=== PATIENT | male | born 1960 | race Caucasian/White ===

== ENCOUNTER 2018-05-06 17:45 | Emergency (ER) | payer MEDICAID, OTHER ==
[~2018-05-06] VITALS: Ht 172.7 cm; Wt 72.6 kg
--- NOTE | 2018-05-06 17:50 | NUR ---
Pt was not found in ER waiting room.
[2018-05-06] MEDS ORDERED: MORPHINE SULFATE 4 MG/1 ML DISP.SYRIN IV ONE (18:30)
[2018-05-06] MEDS ORDERED: ONDANSETRON 4 MG/2 ML VIAL IV ONE (18:30)
[2018-05-06] MEDS ORDERED: ONDANSETRON 4 MG/2 ML VIAL ONE (18:32)
[2018-05-06] MEDS ORDERED: MORPHINE SULFATE 4 MG/1 ML DISP.SYRIN ONE (18:33)
--- NOTE | 2018-05-06 18:49 | NUR ---
Report give to director of real estate RN, Donte.
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
[2018-05-06] MEDS ORDERED: HYDROMORPHONE 1 MG/1 ML DISP.SYRIN ONE (19:10)
[2018-05-06] MEDS ORDERED: HYDROMORPHONE 1 MG/1 ML DISP.SYRIN IV ONE (19:15)
[2018-05-06] MEDS ORDERED: TDAP DIPH,PERTUSS,TET VAC/PF 0.5 ML DISP.SYRIN IM ONE ×2 (19:19→19:30)
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
[2018-05-06 19:52] VITALS: BP 140/80
== END 2018-05-06 19:53 | disposition home or self-care (01) ==
LOC: ER 17:48
DX: S42.002A Fracture of unspecified part of left clavicle, initial encounter for closed fracture (principal); S30.810A Abrasion of lower back and pelvis, initial encounter; S40.212A Abrasion of left shoulder, initial encounter; S09.90XA Unspecified injury of head, initial encounter; V98.8XXA Other specified transport accidents, initial encounter; Y93.89 Activity, other specified; Y92.89 Other specified places as the place of occurrence of the external cause; Y99.8 Other external cause status
CPT/HCPCS: 71101; 73000; 90715; A4217; A4663; J1170; J2270; J2405